=== PATIENT | male | born 1965 | race Caucasian/White ===

== ENCOUNTER 2020-09-24 16:22 | Emergency (ER) | payer BC, MEDICAID, SELFPAY ==
[2020-09-24 16:53] VITALS: BP 120/84; PULSE 80; RESP 19; TEMP 36.8; O2SAT 95
--- NOTE | 2020-09-24 17:04 | ED_ITS ---
HPI - COVID General: Chief Complaint: COVID symptoms Stated Complaint: COUGH SOB Time Seen by Provider: 09/24/20 17:03 Triage information: Has fever, cough or shortness of breath . No known COVID + exposure last 14 days History of Present Illness: HPI Narrative: Patient is a 54-year-old male who comes to the ED with cough and body aches. Symptoms started approximately 1 week ago. He describes his cough is dry and nonproductive and sometimes is coughing makes him gag and retch. He also has some mild shortness of breath when he is up and active doing things. Reports decreased appetite since symptoms started. Denies any shortness of breath while at rest. Denies fever, chills, chest pain, abdominal pain, nausea/vomiting, bladder or bowel symptoms. Patient used to be a tobacco smoker but says he quit approximately 10 years ago. COVID 19 common symptoms: positive non-productive cough, dyspnea (mild when active) and body aches; negative fever(s), chills, productive cough, fatigue, headache(s), throat pain, nasal congestion, nausea, vomiting or diarrhea COVID 19 other sytmptoms: negative chest pain COVID Results: SARS-CoV-2 Antigen (Rapid) Negative (Negative) 09/24/20 17:30 09/24/20 Review of Systems Const: Reports: body aches and change in appetite (decreased appetite); Denies: fever(s), chills or fatigue Eyes: Denies: change in vision or eye discomfort ENMT: Denies: throat pain, odynophagia, nasal discharge or nasal congestion Card: Denies: chest pain, palpitations, edema, swelling of feet/ankles, dyspnea on exertion or orthopnea Resp: Reports: dyspnea (mild when active) and non-productive cough; Denies: productive cough GI: Denies: abdominal pain, nausea, vomiting, diarrhea, constipation or hematochezia : Denies: flank pain, difficulty urinating, dysuria or hematuria Musc: Denies: neck pain, back pain or extremity swelling Skin/Breast: Denies: rash or new lesions Neuro: Denies: headache(s), numbness in extremities or weakness in extremities PFS ED PFSH: Social History Smoking and tobacco status: current every day smoker smokeless tobacco Smokeless tobacco user: chewing tobacco Physical Exam Const: COMMON NORMALS: no acute distress, patient oriented x3, healthy appearing and alert GENERAL APPEARANCE: cooperative and comfortable HENMT: COMMON NORMALS: normocephalic HEAD & SCALP: normocephalic MOUTH: Normal oral and palatal mucosa present THROAT: posterior oropharynx normal and uvula midline Eye: COMMON NORMALS: Equal, round and reactive pupils present PUPIL: Yes Equal, round and reactive pupils present Neck/C-Spine: COMMON NORMALS: supple GENERAL: Yes normal visual inspection Resp: COMMON NORMALS: normal respiratory effort, No retractions, No use of accessory muscles and clear to auscultation bilaterally EFFORT & INSPECTION: Yes able to speak in complete sentences, No tachypneic, No respiratory distress, No labored and Yes Actively coughing dry AUSCULTATION: clear to auscultation bilaterally Cardio: COMMON NORMALS: regular rate, regular rhythm, S1 normal heart sound present, S2 normal heart sound present, No gallops present (Cardio), No clicks present (Cardio), No murmurs present (Cardio) and Peripheral pulses 2+ throughout RATE: regular rate RHYTHM: regular rhythm HEART SOUNDS: S1 normal heart sound present and S2 normal heart sound present PERIPHERAL PULSES: Peripheral pulses 2+ throughout GI: COMMON NORMALS: Normal to inspection, nondistended, normoactive bowel sounds present, Soft to palpation, non-tender and no masses PALPATION: Yes Soft to palpation : COMMON NORMALS: Yes no CVA tenderness BLADDER/KIDNEY EXAM: Yes no CVA tenderness Back/Pelvis: COMMON NORMALS: no CVA tenderness Extremity: COMMON NORMALS: normal to inspection Neuro: COMMON NORMALS: patient oriented x3 and moves all extremities SENSORIUM/ORIENTATION: Yes alert Skin: GENERAL SKIN EXAM: dry skin Course Vital Signs: Vital signs: Vital Signs Temperature 98.1 F 09/24/20 19:34 Pulse Rate 85 09/24/20 20:34 Respiratory Rate 18 09/24/20 20:34 Blood Pressure 149/99 09/24/20 20:34 Pulse Oximetry 96 09/24/20 20:34 MDM - COVID MDM Narrative: Medical decision making narrative: Patient is a 54-year-old male comes to the ED with body aches and dry nonproductive cough. He also endorses some mild shortness of breath upon exertion. Denies any chest pain, fever, nausea/vomiting, abdominal pain, bladder or bowel symptoms. Symptoms have been going on for 7 days. Vitals are stable. Patient appears in no acute distress or pain. Lungs were clear to auscultation bilaterally. CBC was unremarkable. Patient had a creatinine of 1.4, but I have no known history of prior creatinine levels. The rest of CMP was unremarkable. Chest x-ray showed some viral pneumonia. Rapid Covid was negative. Patient was given IV fluids, azithromycin and Solu-Medrol here in the ED. Patient was stable for discharge home. He was diagnosed with viral syndrome, viral pneumonia and elevated serum creatinine level. He was sent home with a prescription for azithromycin and Medrol Dosepak and Tessalon Perles. He was told to follow-up with his PCP 5 to 7 days and to have his creatinine level rechecked at that time. Return to ED precautions given. Patient understood and agree with plan. Lab Data: Attestation: I reviewed the patient's lab results. Labs: Lab Results 09/24/20 09/24/20 09/24/20 Range/Units 17:30 18:13 18:13 WBC 6.4 (4.0-10.0) 10^3/ uL RBC 4.36 (4.1-5.3) 10^6/u L Hgb 13.3 (11.7-16.6) g/dL Hct 39.9 L (42.0-52.0) % MCV 91.5 (80-94) fl MCH 30.5 (28.0-34.0) pg MCHC 33.3 (30.0-36.0) g/dL RDW 13.2 (12.1-15.1) % Plt Count 214 (130-400) 10^3/c mm MPV 11.5 H (7.4-10.4) fL Neut % (Auto) 77.8 % Lymph % (Auto) 14.0 % Real % (Auto) 6.0 % Eos % (Auto) 1.3 % Baso % (Auto) 0.6 % Neut # (Auto) 4.95 (1.8-7.7) 10^3/u L Lymph # (Auto) 0.9 (0.8-4.8) 10^3/u L Real # (Auto) 0.4 (0.2-0.9) 10^3/u L Eos # (Auto) 0.1 (0.0-0.8) 10^3/u L Baso # (Auto) 0.0 (0.0-0.1) 10^3/u L Nucleated RBC % (a uto) 0 % Nucleated RBCs # 0.0 /100WBC Sodium 135 L (136-145) mmol/L Potassium 4.1 (3.5-5.1) mmol/L Chloride 99 (98-107) mmol/L Carbon Dioxide 21 L (22-29) mmol/L Anion Gap 19.1 H (5-19) BUN 24 H (6-20) mg/dL Creatinine 1.4 H (0.7-1.2) mg/dL GFR Calculation 52.4 L (90-130) mL/min Glucose 102 (65-115) mg/dL Calculated Osmolal ity 284 L (285-295) mOsm/k g Calcium 9.1 (8.5-10.5) mg/dL Total Bilirubin 0.7 (0.15-1.2) mg/dL AST 47 H (0-40) U/L ALT 33 (0-41) U/L Alkaline Phosphata se 82 (40-130) IU/L Total Protein 8.1 (6.6-8.7) g/dL Albumin 3.5 (3.5-5.2) g/dL Globulin 4.6 (1.3-4.6) g/dL Lipase 47 (13-60) U/L SARS-CoV-2 Ag (Rap id) Negative (Negative) Imaging Data: CXR: Attestation: I personally reviewed and interpreted this imaging study as follows: Radiologist's impression: [address] [address] XRay Report Signed Patient: Eros La Unit #: [id number] : 1965 Age/Sex: 54 / M ADM Date: 09/24/20 Loc: ER Room/Bed: Attending Dr: Ordering Provider/Ordering MD: Ambrocio Dorado Date of Service: 09/24/20 Procedure(s): XR chest 1V portable [id number] Accession Number(s): [id number] Report Number: [id number] PROCEDURE INFORMATION: Exam: XR Chest Exam date and time: 09/24/2020 5:03 PM Age: 54 years old Clinical indication: Cough; Additional info: Cough, body aches TECHNIQUE: Imaging protocol: XR of the chest. Views: 1 view. COMPARISON: No relevant prior studies available. FINDINGS: Lungs: Multifocal bilateral predominantly peripheral opacities which may be seen with viral pneumonia. Pleural spaces: Unremarkable. No pleural effusion. No pneumothorax. Heart/Mediastinum: No cardiomegaly. Bones/joints: No acute fracture. XR/XR chest 1V portable [id number] IMPRESSION: Multifocal bilateral predominantly peripheral opacities which may be seen with viral pneumonia. Dictated By: Chana Mustafa MD Signed By: Chana Mustafa MD Signed Date/Time: 0 09/24/201853 DD/ 51 COVID Results: SARS-CoV-2 Antigen (Rapid) Negative (Negative) 09/24/20 17:30 09/24/20 Discharge Plan Discharge Patient Disposition: Home Clinical Impression: Viral syndrome, Elevated serum creatinine, Pneumonia, viral Condition: Stable Prescriptions: New azithromycin 250 mg tablet 250 mg PO DAILY 4 Days Qty: 4 RF: 0 Medrol (Michael) 4 mg tablets,dose pack See Rx Instructions .ROUTE .COMPLEX Qty: 21 RF: 0 Tessalon Perles 100 mg capsule 100 mg PO TID PRN (Reason: cough) Qty: 20 RF: 0 No Action coenzyme Q10 PO RF: 0 cholecalciferol (vitamin D3) PO RF: 0 pantoprazole 40 mg tablet,delayed release (DR/EC) See Rx Instructions .ROUTE .COMPLEX Qty: 60 RF: 3 Discharge Orders: Discharge ED (Routine); Ordered 09/24/20 Ordered By: Ambrocio Dorado Referrals: Nolan Reyna DO [Primary Care Provider] - Discharge Diet: Regular Discharge Activity: Increase activity as tolerated Patient Instructions: Viral Pneumonia (ED), Viral Syndrome (ED) Activity Restrictions/Additional Instructions: Follow-up with medical provider as directed in 5 to 7 days days for reevaluation. Also have your creatinine level rechecked at your next doctor's appointment. Take medications as prescribed. Make sure you drink plenty of fluids and stay hydrated. Return to the ER or your medical provider if condition worsens. Please read and understand discharge instructions. Thank you for choosing [facility] for your healthcare needs today. Please realize this is an emergency room and that we are providing you with a medical screening exam and this may not be complete and all inclusive of all the testing and or work up that you may need to determine your ailment or severity of your illness. It is very important that you follow up as instructed or that you return to the Emergency Department should you have concerns or if your condition changes or worsens in any way. Coding Level of Care Code ED Signal Fitter for Tamra Fwjyotsna Exam Comprehensive
[2020-09-24 17:33] VITALS: BP 124/87; PULSE 83; RESP 18; TEMP 36.4; O2SAT 98
[2020-09-24 18:16] LABS: SARS Covid-2 Antigen Negative (Negative)
[2020-09-24 18:18] LABS: Basophils % 0.6 %; Eosinophils # 0.1 10^3/uL (0.0-0.8); Eosinophils % 1.3 %; Hematocrit 39.9 % (42.0-52.0); Hemoglobin 13.3 g/dL (11.7-16.6); Lymphocytes # 0.9 10^3/uL (0.8-4.8); Mean Corpuscular HGB Conc 33.3 g/dL (30.0-36.0); Mean Corpuscular Hemoglobin 30.5 pg (28.0-34.0); Mean Corpuscular Volume 91.5 fl (80-94); Mean Platelet Volume 11.5 fL (7.4-10.4); Monocytes # 0.4 10^3/uL (0.2-0.9); Neutrophils # 4.95 10^3/uL (1.8-7.7); Neutrophils % 77.8 %; Nucleated Red Blood Cells % 0 %; Platelet Count 214 10^3/cmm (130-400); Red Blood Count 4.36 10^6/uL (4.1-5.3); Red Cell Distribution Width 13.2 % (12.1-15.1); White Blood Count 6.4 10^3/uL (4.0-10.0)
[2020-09-24 18:35] LABS: Slide Review Slide Review Perform
[2020-09-24 18:50] LABS: Albumin Level 3.5 g/dL (3.5-5.2); Alkaline Phosphatase 82 IU/L (40-130); Chloride 99 mmol/L (98-107); Potassium 4.1 mmol/L (3.5-5.1)
[2020-09-24 19:04] LABS: Alanine Aminotransferase 33 U/L (0-41); Aspartate Amino Transferase 47 U/L (0-40); Blood Urea Nitrogen 24 mg/dL (6-20); Calcium 9.1 mg/dL (8.5-10.5); Carbon Dioxide 21 mmol/L (22-29); Globulin 4.6 g/dL (1.3-4.6); Glomerular Filtration Rate 52.4 mL/min (90-130); Glucose 102 mg/dL (65-115); Lipase 47 U/L (13-60); Total Bilirubin 0.7 mg/dL (0.15-1.2); Total Protein 8.1 g/dL (6.6-8.7)
[2020-09-24 19:05] LABS: Anion Gap 19.1 (5-19); Osmolality Calculated 284 mOsm/kg (285-295); Sodium 135 mmol/L (136-145)
[2020-09-24 19:34] VITALS: BP 124/87; PULSE 88; RESP 16; TEMP 36.7; O2SAT 97
[2020-09-24] MEDS: sodium chloride 0.9% 1,000 ML 999 ML IV (19:36)
[2020-09-24] MEDS: azithromycin 250 mg Tablet 500 MG PO (19:36)
[2020-09-24] MEDS: benzonatate 100 mg Capsule PO (20:19)
[2020-09-24 20:34] VITALS: BP 149/99; PULSE 85; RESP 18; O2SAT 96
== END 2020-09-24 20:35 | disposition home or self-care (01) ==
PROVIDERS: Emergency Provider Physician Assistant; PCP Family Medicine
DX: B34.9 Viral infection, unspecified (principal); J12.9 Viral pneumonia, unspecified; R79.89 Other specified abnormal findings of blood chemistry; F17.220 Nicotine dependence, chewing tobacco, uncomplicated; Z20.822 Contact with and (suspected) exposure to COVID-19
CPT/HCPCS: 71045; 80053; 83690; 85025; 87040; 87205; 87426; 96361; 96374; 99284; J2930; J7030; Q0144

== ENCOUNTER 2020-10-19 16:39 | Emergency (ER) | payer MEDICAID, SELFPAY ==
[2020-10-19 16:48] VITALS: BP 126/76; PULSE 102; RESP 16; TEMP 36.9; O2SAT 94; BMI 27.8
--- NOTE | 2020-10-19 17:02 | XRR_ITS ---
PROCEDURE INFORMATION: Exam: XR Chest Exam date and time: 10/19/2020 5:02 PM Age: 54 years old Clinical indication: Cough; Additional info: Dyspnea TECHNIQUE: Imaging protocol: XR of the chest. Views: 2 views. COMPARISON: CR (CHEST, ) 09/24/2020 5:35 PM FINDINGS: Lungs: Decreased patchy bilateral mixed interstitial and airspace opacity suggestive of resolving infiltrates compared to prior exam. Pleural spaces: Unremarkable. No pleural effusion. No pneumothorax. Heart/Mediastinum: Unremarkable. No cardiomegaly. Bones/joints: Unremarkable. XR/XR chest 2V* [id number] IMPRESSION: Decreased patchy bilateral mixed interstitial and airspace opacity suggestive of resolving infiltrates compared to prior exam.
--- NOTE | 2020-10-19 17:09 | ED_ITS ---
HPI - SOB/Dyspnea General: Chief Complaint: Shortness of Breath/Dyspnea Stated Complaint: SOB, pain in chest, stomach and side, cough Time Seen by Provider: 10/19/20 16:59 History of Present Illness: HPI Narrative: 54-year-old male patient comes in today for complaints of increased shortness of breath and cough. Patient back on September 23 was diagnosed with viral pneumonia. Patient had worsening symptoms over the week and then had to seek further service in [facility] and was diagnosed with a PE. Patient went to the primary care office today at the [facility] in [place] and was referred to the ER for concerns of fluid on his lungs. Patient reports sometimes he has pulse oxygenation readings down to 86% in the morning. Patient has as needed oxygen at home. Patient is on Eliquis and pantoprazole routinely. MD elicited complaint: shortness of breath and cough Review of Systems General: Reports: 10 or more systems reviewed and unremarkable except in HPI and below Resp: Reports: non-productive cough PFSH ED PFSH: Social History Smoking and tobacco status: current every day smoker smokeless tobacco Smokeless tobacco user: chewing tobacco Physical Exam Const: COMMON NORMALS: no acute distress and patient oriented x3 GENERAL APPEARANCE: cooperative HENMT: COMMON NORMALS: normocephalic, TM's normal bilaterally and Normal external nose present HEAD & SCALP: normal to inspection and normocephalic NOSE: Normal external nose present TYMPANIC MEMBRANE: TM's normal bilaterally MOUTH: Normal oral and palatal mucosa present THROAT: posterior oropharynx normal Eye: GENERAL EYE: appearance normal, both eyes and all related structures Neck/C-Spine: COMMON NORMALS: full ROM Lymph: LYMPHATIC: no lymphadenopathy noted Chest: COMMONS NORMALS: normal inspection of the chest Resp: COMMON NORMALS: normal respiratory effort EFFORT & INSPECTION: Yes able to speak in complete sentences AUSCULTATION: diminished lung sounds Cardio: COMMON NORMALS: regular rate and regular rhythm RATE: regular rate RHYTHM: regular rhythm GI: COMMON NORMALS: non-tender : COMMON NORMALS: Yes no CVA tenderness BLADDER/KIDNEY EXAM: Yes no CVA tenderness Back/Pelvis: COMMON NORMALS: no CVA tenderness and thoracic and lumbar spine normal to inspection Extremity: COMMON NORMALS: normal to inspection Neuro: COMMON NORMALS: patient oriented x3 and moves all extremities Psych: COMMON NORMALS: mental status grossly normal and cooperative Skin: COMMON NORMALS: no rashes or lesions noted GENERAL SKIN EXAM: no rashes or lesions noted Course Vital Signs: Vital signs: Vital Signs Temperature 98.4 F 10/19/20 16:48 Pulse Rate 82 10/19/20 18:32 Respiratory Rate 25 H 10/19/20 18:32 Blood Pressure 125/82 10/19/20 17:27 Pulse Oximetry 99 10/19/20 18:32 MDM - SOB/Dyspnea MDM Narrative: Medical decision making narrative: 54-year-old male patient comes in today for complaints of cough and congestion. Patient states they just do not feel like he is getting the congestion out of his chest like he thinks he should. Patient had probable Covid pneumonia last month and then suffered at after the pneumonia which required him to be hospitalized in [place]. Patient went to see his primary care today for reevaluation and they referred him to the ER due to his PE and congestion in his chest. On exam patient has some decreased breath sounds in the bases. Patient looks mildly unwell but not toxic. Patient was satting 94 to 99% on room air. Differential diagnosis includes pneumonia, deconditioning, COPD, pleural effusion. Chest x-ray noted improvement in the bilateral pneumonia that was seen last month although it does appear in the left lower lung ford there seems to be a persistent consolidation. I think the patient may be having a secondary bacterial pneumonia there and we will start him on some Levaquin due to his hospitalization. Patient will be continued for the next 5 days on Levaquin 750 mg. Patient will also be covered with some dexamethasone to help with inflammation in the lung ford. Patient will continue with albuterol inhaler. Encourage continuation of Eliquis and pantoprazole as prescribed. Patient should follow-up with internal medicine physician in 1 week for recheck. I did place a case management report for this further evaluation and treatment plan. Patient reported understanding. Lab Data: Labs: Lab Results 10/19/20 10/19/20 Range/Units 17:57 17:57 Sodium 136 (136-145) mmol/L Potassium 4.3 (3.5-5.1) mmol/L Chloride 100 (98-107) mmol/L Carbon Dioxide 26 (22-29) mmol/L Anion Gap 14.3 (5-19) BUN 12 (6-20) mg/dL Creatinine 1.1 (0.7-1.2) mg/dL GFR Calculation 69.2 L (90-130) mL/min Glucose 98 (65-115) mg/dL Calculated Osmolal ity 282 L (285-295) mOsm/k g Calcium 8.1 L (8.5-10.5) mg/dL Total Bilirubin 0.4 (0.15-1.2) mg/dL AST 19 (0-40) U/L ALT 46 H (0-41) U/L Alkaline Phosphata se 99 (40-130) IU/L Troponin T Gen 5 n g/L 18 H (0-15) ng/L NT-Pro-B Natriuret Pep 73 (0-125) pg/mL Total Protein 5.5 L (6.6-8.7) g/dL Albumin 2.8 L (3.5-5.2) g/dL Globulin 2.7 (1.3-4.6) g/dL Discharge Plan Discharge Patient Disposition: Home Clinical Impression: Pneumonia Qualifiers: Pneumonia type: due to unspecified organism Laterality: left Lung location: lower lobe of lung Qualified Code(s): J18.9 - Pneumonia, unspecified organism Condition: Stable Prescriptions: New levofloxacin 750 mg tablet 750 mg PO DAILY 4 Days RF: 0 dexamethasone 6 mg tablet 6 mg PO DAILY Qty: 4 RF: 0 No Action Tylenol Extra Strength 500 mg Tablet 1,000 mg PO Q4H PRN (Reason: Pain) RF: 0 Vitamin C 500 mg Tablet 1,000 mg PO QAM RF: 0 iron 325 mg (65 mg iron) Tablet 325 mg PO QAM RF: 0 ProAir HFA 90 mcg/actuation Hfa Aerosol Inhaler 2 puff INHALATION Q4H PRN (Reason: Shortness Of Breath) RF: 0 Eliquis 5 mg Tablet 5 mg PO BID RF: 0 Vitamin D3 1 cap PO QAM RF: 0 zinc 1 cap PO QAM RF: 0 pantoprazole 40 mg tablet,delayed release (DR/EC) 40 mg PO BID RF: 0 Discharge Orders: Discharge ED (Routine); Ordered 10/19/20 Ordered By: Amor Madrigal Referrals: Nolan Reyna DO [Primary Care Provider] - Discharge Diet: Usual diet Discharge Activity: Increase activity as tolerated Patient Instructions: Pneumonia (ED), Opioid Safety Activity Restrictions/Additional Instructions: Continue with routine care. Use albuterol inhaler 2 puffs every 4 hours as needed for shortness of breath or persistent coughing. Use it at least 4 times a day for the next 5 days. Use antibiotic and steroid as directed. Continue with oxygen use as needed. Follow-up with primary care in [address] a case management request for assistance with a referral to her automotive brake specialist in order to manage your pulmonary embolism and pneumonia follow-up. Return to the ER for worsening shortness of breath, elevated fever, or new concerns. Coding Level of Care Code ED Research Worker Encyclopedia for Tamra Fwjyotsna Exam Comprehensive
--- NOTE | 2020-10-19 17:20 | ECG_ITS ---
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 Measurements Intervals [place] Rate: 101 P: 56 IA: 116 QRS: 41 QRSD: 89 T: 38 QT: 328 QTc: 427 Interpretive Statements SINUS TACHYCARDIA WITH SHORT IA INTERVAL No previous ECG available for comparison Electronically Signed On 10-19-2020 20:08:09 CDT by Girish Phillip M.D. [id number]
[2020-10-19 17:27] VITALS: BP 125/82; PULSE 99; RESP 24; O2SAT 97
[2020-10-19] MEDS: levoFLOXacin 750 mg Tablet PO (18:29)
[2020-10-19] MEDS: dexamethasone 10 mg/mL INJ IVP (18:30)
[2020-10-19 18:32] VITALS: PULSE 82; RESP 25; O2SAT 99
[2020-10-19 18:32] LABS: Troponin T (5th) Once 18 ng/L (0-15)
[2020-10-19 18:46] LABS: Alanine Aminotransferase 46 U/L (0-41); Albumin Level 2.8 g/dL (3.5-5.2); Alkaline Phosphatase 99 IU/L (40-130); Anion Gap 14.3 (5-19); Aspartate Amino Transferase 19 U/L (0-40); Blood Urea Nitrogen 12 mg/dL (6-20); Calcium 8.1 mg/dL (8.5-10.5); Carbon Dioxide 26 mmol/L (22-29); Chloride 100 mmol/L (98-107); Globulin 2.7 g/dL (1.3-4.6); Glomerular Filtration Rate 69.2 mL/min (90-130); Glucose 98 mg/dL (65-115); NT Pro B Type Natriuretic Pept 73 pg/mL (0-125); Osmolality Calculated 282 mOsm/kg (285-295); Potassium 4.3 mmol/L (3.5-5.1); Sodium 136 mmol/L (136-145); Total Bilirubin 0.4 mg/dL (0.15-1.2); Total Protein 5.5 g/dL (6.6-8.7)
[2020-10-19 19:11] VITALS: PULSE 104; RESP 17; O2SAT 98
--- NOTE | 2020-10-23 10:51 | DCPLANNER ---
custodial services manager had message to schedule a follow up appointment for patient with internal medicine for primary care. custodial services manager called the internal medicine clinic, spoke with Jennifer, gave clinic patients information. A follow up appointment was scheduled for Saturday, October 24, 2020 at 1:00 with CUFF FOLDER, Lashell Segundo. Clinic will call patient with appointment information.
--- NOTE | 2020-10-27 13:52 | DCPLANNER ---
Patient had a follow up appointment scheduled with Internal Medicine - appointment was cancelled.
== END 2020-10-19 19:12 | disposition home or self-care (01) ==
PROVIDERS: Emergency Provider Nurse Practitioner Family; PCP Family Medicine
DX: J18.9 Pneumonia, unspecified organism (principal); Z79.01 Long term (current) use of anticoagulants; F17.220 Nicotine dependence, chewing tobacco, uncomplicated
CPT/HCPCS: 71046; 80053; 83880; 84484; 93005; 96374; 99284; J1100

== ENCOUNTER → 2021-05-29 15:06 | Outpatient (BNVA) | payer MEDICAID, SELFPAY | PROVIDERS: PCP Nurse Practitioner; Visit Provider Internal Medicine Critical Care Medicine | DX: J86.9 Pyothorax without fistula (principal); Z87.891 Personal history of nicotine dependence; Z86.16 Personal history of COVID-19; R06.02 Shortness of breath | CPT/HCPCS: 99204 ==

== ENCOUNTER 2021-07-04 08:19 | Outpatient (CLI) | payer MEDICAID, SELFPAY ==
--- NOTE | 2021-07-04 08:30 | CT_ITS ---
WS: [id number] CT CHEST WITHOUT INTRAVENOUS CONTRAST HISTORY: Shortness of breath TECHNIQUE: Contiguous 5 mm axial imaging performed on the thorax. Coronal and sagittal reformats are submitted. All CT scans at [facility] use at least one of these dose optimization techniques: automated exposure control; mA and/or kV adjustment per patient size (includes targeted exams where dose is matched to clinical indication); or iterative reconstruction. CONTRAST: None DLP: 667.48 mGy.cm COMPARISON: Chest radiograph 10/19/2020 Lungs and central airway: Mild pulmonary hyperinflation with peripheral opacifications. Some of these opacifications are groundglass with mild tree-in-bud and slightly more consolidated opacifications. Well-rounded 10 mm nodule at the RIGHT lung base which could be a focal nodule developing or rounded atelectasis. Pleura: Normal. No pleural effusion. Heart and pericardium: Normal size heart with no pericardial effusion. Mediastinum and zuly: No mediastinum or hilar adenopathy. Vessels: Normal size aorta and pulmonary artery. Chest wall and lower neck: No soft tissue masses. Upper abdomen: Small hiatal hernia. No visualized adrenal mass. Osseous structures: Mild increase in thoracic kyphosis. CT/CT chest wo con [id number] IMPRESSION: 1. Bilateral multi lobar mild groundglass, tree-in-bud and slightly more conso lidated opacifications. Most consistent with mild pneumonitis with areas of ate lectasis. There is an additional 10 mm nodule at the RIGHT lung base which coul d be rounded atelectasis. Consider follow-up chest CT in 6 months. 2. As compared to the most recent chest radiograph of 10/19/2020 the lungs appea r better aerated. 3. No cardiomegaly. 4. Small hiatal hernia.
--- NOTE | 2021-07-04 12:54 | PFTS_ITS ---
Date of Study:07/04/21 Date of Dictation: MECHANICS: Forced vital capacity (FVC) is reduced. Forced expiratory volume in one second (FEV1) is reduced. FEV1/FVC is normal. FLOW VOLUME LOOP: Mild scooping. LUNG VOLUMES: Total lung capacity (TLC) is reduced. Residual volume (RV) is reduced. DIFFUSING CAPACITY FOR CARBON MONOXIDE: Mildly reduced. INTERPRETATION: The postbronchodilator spirometry is consistent with mild restriction. There is some postbronchodilator response. Lung volumes are consistent with mild restriction. Gas exchange (DLCO) is mildly reduced. MTDD
== END 2021-07-04 08:20 | disposition home or self-care (01) ==
LOC: RAD 08:20
PROVIDERS: PCP Nurse Practitioner; Visit Provider Internal Medicine Critical Care Medicine
DX: R91.8 Other nonspecific abnormal finding of lung field (principal); K44.9 Diaphragmatic hernia without obstruction or gangrene
CPT/HCPCS: 71250; 94060; 94726; 94729; J7611

== ENCOUNTER → 2021-07-19 12:11 | Outpatient (BNVA) | payer MEDICAID, SELFPAY | PROVIDERS: PCP Nurse Practitioner; Visit Provider Internal Medicine Critical Care Medicine | DX: J86.9 Pyothorax without fistula (principal); R06.02 Shortness of breath; R91.1 Solitary pulmonary nodule; Z87.891 Personal history of nicotine dependence; Z86.16 Personal history of COVID-19 | CPT/HCPCS: 99214 ==

== ENCOUNTER → 2021-09-14 10:08 | Outpatient (BNVA) | payer MEDICAID, SELFPAY | PROVIDERS: PCP Nurse Practitioner; Visit Provider Nurse Practitioner Family | DX: M25.511 Pain in right shoulder (principal); S49.91XA Unspecified injury of right shoulder and upper arm, initial encounter; X58.XXXA Exposure to other specified factors, initial encounter | CPT/HCPCS: 20610; 73030; 99214; J3301 ==

== ENCOUNTER → 2021-09-26 12:34 | Outpatient (BNVA) | payer MEDICAID, SELFPAY | PROVIDERS: PCP Nurse Practitioner; Visit Provider Podiatrist Foot & Ankle Surgery | DX: L60.0 Ingrowing nail (principal) | CPT/HCPCS: 11730 ==

== ENCOUNTER → 2021-10-10 14:32 | Outpatient (BNVA) | payer MEDICAID, SELFPAY | PROVIDERS: PCP Nurse Practitioner; Visit Provider Podiatrist Foot & Ankle Surgery | DX: L60.0 Ingrowing nail (principal) | CPT/HCPCS: 99213 ==

== ENCOUNTER 2021-12-12 13:44 | Outpatient (CLI) | payer MEDICAID, SELFPAY ==
--- NOTE | 2021-12-12 | USCV_ITS ---
YaminiEros neves Age: 56 Gender: M : 1965 Exam Date: 12/12/2021 14:32 Ordering Phys: Jameson Chisholm Technologist: SOCRATES Exam Location: [facility] – [place] Indication: LEG EDEMA HISTORY: Bilateral Edema. On blood thinners (baby aspirin) for blot clots in bilateral legs PROCEDURES: Venous duplex imaging was performed in bilateral lower extremities. The following venous structures were evaluated: common femoral vein, profunda vein, proximal portion of the greater saphenous vein, superficial femoral vein, and the popliteal vein. In addition, the posterior tibial and peroneal trunk were evaluated. Serial compression, augmentation maneuvers, and spectral Doppler flow evaluation were performed. FINDINGS: Chronic DVT seen on Rt prox femoral artery to popliteal artery. CONCLUSIONS Chronic appearing DVT right proximal femoral vein extending to popliteal vein with poor flow No evidence of left lower extremity DVT. Guy Bang MD (Electronically Signed) Final Date: 12 December 2021 16:17 S
== END 2021-12-12 13:45 | disposition home or self-care (01) ==
PROVIDERS: PCP Nurse Practitioner; Visit Provider Nurse Practitioner
DX: R06.9 Unspecified abnormalities of breathing (principal); I82.411 Acute embolism and thrombosis of right femoral vein; I82.431 Acute embolism and thrombosis of right popliteal vein
CPT/HCPCS: 93970

== ENCOUNTER 2022-01-02 12:55 | Emergency (ER) | payer MEDICAID, SELFPAY ==
--- NOTE | 2022-01-02 13:33 | USCV_ITS ---
Eros La Age: 56 Gender: M : 1965 Exam Date: 01/02/2022 13:48 Ordering Phys: Dick Hernández DO Technologist: Darryl Rousseau [place] [facility] [place]: HX OF RT LEG DVT PROCEDURES: Venous duplex imaging was performed in only the right lower extremity. The following venous structures were evaluated: common femoral vein, profunda vein, proximal portion of the greater saphenous vein, superficial femoral vein, and the popliteal vein. In addition, the posterior tibial and peroneal trunk were evaluated. FINDINGS: RT LEG DVT FROM FV, POPLETEAL AND PERNINEAL CONCLUSIONS Right Lower extremity DVT femoral vein, popliteal and peroneal veins. Persistent thrombus is similiar in appearance to 12/12/21 Dr Little notified at time of exam by [employer] Guy Bang MD (Electronically Signed) Final Date: 02 January 2022 16:34 S
[2022-01-02 13:34] VITALS: BP 120/83; PULSE 61; TEMP 36.8; O2SAT 96
--- NOTE | 2022-01-02 14:48 | W.ED.GENADLT ---
Documented by User: FRANC Serna 01/02/22 16:06 HPI - General Adult General: Chief complaint: General Medical Stated complaint: Sent from for bloodclot in right leg Time Seen by Provider: 01/02/22 14:47 History of Present Illness: Patient is a 56-year-old male comes to the ED with with right leg DVT. Patient was sent here by primary care doctor because an ultrasound done on his right lower leg approximately 3 weeks ago showed a DVT. Patient denies any symptoms. Denies any chest pain, shortness of breath or hemoptysis. Associated symptoms: Deny chest pain, dyspnea, headache(s), nausea, rash, palpitations or vomiting Review of Systems Const: Denies: fever(s), chills or fatigue Eyes: Denies: change in vision or eye discomfort ENMT: Denies: throat pain, odynophagia, nasal discharge or nasal congestion Card: Denies: chest pain, palpitations, edema, swelling of feet/ankles, dyspnea on exertion or orthopnea Resp: Denies: dyspnea, productive cough or non-productive cough GI: Denies: abdominal pain, nausea, vomiting, diarrhea, constipation or hematochezia : Denies: flank pain, difficulty urinating, dysuria or hematuria Musc: Denies: neck pain, back pain or extremity swelling Skin/Breast: Denies: rash or new lesions Neuro: Denies: headache(s), numbness in extremities or weakness in extremities PFS ED PFSH: Medical History Pneumonia Pyopneumothorax Surgical History S/P appendectomy Social History Smoking and tobacco status: former smoker Quit status (tobacco): has quit using tobacco Year quit tobacco: 2007 Former quit date comment: 2 ppd X 34 years, started at age 7 Physical Exam Const: COMMON NORMALS: no acute distress, patient oriented x3 and alert GENERAL APPEARANCE: cooperative and comfortable HENMT: COMMON NORMALS: normocephalic HEAD & SCALP: normocephalic MOUTH: Normal oral and palatal mucosa present THROAT: posterior oropharynx normal and uvula midline Neck/C-Spine: COMMON NORMALS: supple GENERAL: Yes normal visual inspection Resp: COMMON NORMALS: normal respiratory effort, No retractions, No use of accessory muscles and clear to auscultation bilaterally AUSCULTATION: clear to auscultation bilaterally Cardio: COMMON NORMALS: regular rate, regular rhythm, S1 normal heart sound present, S2 normal heart sound present, No gallops present (Cardio), No clicks present (Cardio), No murmurs present (Cardio) and Peripheral pulses 2+ throughout RATE: regular rate RHYTHM: regular rhythm HEART SOUNDS: S1 normal heart sound present and S2 normal heart sound present PERIPHERAL PULSES: Peripheral pulses 2+ throughout GI: COMMON NORMALS: Normal to inspection, nondistended, normoactive bowel sounds present, Soft to palpation, non-tender and no masses PALPATION: Yes Soft to palpation : COMMON NORMALS: Yes no CVA tenderness BLADDER/KIDNEY EXAM: Yes no CVA tenderness Back/Pelvis: COMMON NORMALS: no CVA tenderness Extremity: COMMON NORMALS: normal to inspection Neuro: COMMON NORMALS: patient oriented x3 SENSORIUM/ORIENTATION: Yes alert GAIT: Yes Normal gait present Skin: GENERAL SKIN EXAM: dry skin Course Vital Signs: Vital signs: Vital Signs Temperature 98.2 F 01/02/22 13:34 Pulse Rate 67 01/02/22 15:34 Respiratory Rate 14 01/02/22 15:34 Blood Pressure 123/85 01/02/22 15:34 Pulse Oximetry 98 01/02/22 15:34 Oxygen Delivery Me thod 01/02/22 15:34 MDM - General Adult Medical Decision Making Patient is a 56-year-old male who was sent here to the ED by his doctor due to a DVT of his right leg. He currently has no symptoms. Denies any chest pain, shortness of breath or hemoptysis. Patient had about patient ultrasound down of his lower extremities bilaterally back on December and therefore just came back and showed he had a DVT in right leg femoral vein. He was given a dose of Lovenox here in the ED and discharged home with a prescription for Eliquis. He was told to follow-up with his PCP within the next week for reevaluation. Return ED precautions given. Patient understood and agreed with plan. Discharge Plan Discharge Patient Disposition: Home Clinical Impression: DVT (deep venous thrombosis) Qualifiers: DVT location: lower extremity Affected thrombotic vein of extremity: femoral Chronicity: chronic Laterality: right Qualified Code(s): I82.511 - Chronic embolism and thrombosis of right femoral vein Condition: Stable Prescriptions: New apixaban 5 mg tablet 5 mg PO BID Qty: 60 0RF Rx Instructions: Take 2 tabs twice daily for the first 7 days. After day 7 take 1 tablet twice daily. No Action furosemide [Lasix] 40 mg tablet 40 mg PO DAILY atorvastatin 20 mg tablet 20 mg PO DAILY fluoxetine [Prozac] 10 mg capsule 10 mg PO DAILY potassium chloride 10 mEq capsule, extended release 10 meq PO DAILY aspirin 325 mg tablet 325 mg PO DAILY Bevespi Aerosphere 9-4.8 mcg HFA aerosol inhaler 2 puff inhalation BID Qty: 10.7 5RF ProAir HFA 90 mcg/actuation Hfa Aerosol Inhaler 2 puff INHALATION Q4H PRN (Reason: Shortness Of Breath) pantoprazole 40 mg tablet,delayed release (DR/EC) 40 mg PO BID Discharge Orders: Discharge ED (Routine); Ordered 01/02/22 Ordered By: Ambrocio Dorado Referrals: Jameson Chisholm FNP [Primary Care Provider] - Discharge Diet: Regular Discharge Activity: Resume usual activity Patient Instructions: Apixaban (By mouth), Deep Vein Thrombosis (DC) Activity Restrictions/Additional Instructions: Follow-up with medical provider as directed in the next couple weeks for reevaluation. Start taking Eliquis 2 tabs twice daily for the first 7 days and then after day 7 take 1 tab twice daily. Take medications as prescribed. Return to the ER or your medical provider if condition worsens. Please read and understand discharge instructions. Thank you for choosing [facility] for your healthcare needs today. Please realize this is an emergency room and that we are providing you with a medical screening exam and this may not be complete and all inclusive of all the testing and or work up that you may need to determine your ailment or severity of your illness. It is very important that you follow up as instructed or that you return to the Emergency Department should you have concerns or if your condition changes or worsens in any way. 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 [employer] Exam Comprehensive Documented by User: Dick Hernández DO 01/04/22 13:55 HPI - General Adult General: Chief complaint: General Medical Stated complaint: Sent from for bloodclot in right leg Time Seen by Provider: 01/02/22 14:47 [facility] [place] ED PFSH: Medical History Pneumonia Pyopneumothorax Surgical History S/P appendectomy Social History Smoking and tobacco status: former smoker Quit status (tobacco): has quit using tobacco Year quit tobacco: 2007 Former quit date comment: 2 ppd X 34 years, started at age 7 Course Vital Signs: Vital signs: Vital Signs Temperature 98.2 F 01/02/22 13:34 Pulse Rate 67 01/02/22 15:34 Respiratory Rate 14 01/02/22 15:34 Blood Pressure 123/85 01/02/22 15:34 Pulse Oximetry 98 01/02/22 15:34 Oxygen Delivery Me thod 01/02/22 15:34 MDM - General Adult Medical Decision Making Patient is a 56-year-old male who was sent here to the ED by his doctor due to a DVT of his right leg. He currently has no symptoms. Denies any chest pain, shortness of breath or hemoptysis. Patient had about patient ultrasound down of his lower extremities bilaterally back on December and therefore just came back and showed he had a DVT in right leg femoral vein. He was given a dose of Lovenox here in the ED and discharged home with a prescription for Eliquis. He was told to follow-up with his PCP within the next week for reevaluation. Return ED precautions given. Patient understood and agreed with plan. Chart reviewed and patient discussed with midlevel. Agree with assessment and plan. Discharge Plan Discharge Patient Disposition: Home Clinical Impression: DVT (deep venous thrombosis) Qualifiers: DVT location: lower extremity Affected thrombotic vein of extremity: femoral Chronicity: chronic Laterality: right Qualified Code(s): I82.511 - Chronic embolism and thrombosis of right femoral vein Condition: Stable Prescriptions: New apixaban 5 mg tablet 5 mg PO BID Qty: 60 0RF Rx Instructions: Take 2 tabs twice daily for the first 7 days. After day 7 take 1 tablet twice daily. No Action furosemide [Lasix] 40 mg tablet 40 mg PO DAILY atorvastatin 20 mg tablet 20 mg PO DAILY fluoxetine [Prozac] 10 mg capsule 10 mg PO DAILY potassium chloride 10 mEq capsule, extended release 10 meq PO DAILY aspirin 325 mg tablet 325 mg PO DAILY Bevespi Aerosphere 9-4.8 mcg HFA aerosol inhaler 2 puff inhalation BID Qty: 10.7 5RF ProAir HFA 90 mcg/actuation Hfa Aerosol Inhaler 2 puff INHALATION Q4H PRN (Reason: Shortness Of Breath) pantoprazole 40 mg tablet,delayed release (DR/EC) 40 mg PO BID Discharge Orders: Discharge ED (Routine); Ordered 01/02/22 Ordered By: Ambrocio Dorado Referrals: Jameson Chisholm, [facility] [Primary Care Provider] - Discharge Diet: Regular Discharge Activity: Resume usual activity Patient Instructions: Apixaban (By mouth), Deep Vein Thrombosis (DC) Activity Restrictions/Additional Instructions: Follow-up with medical provider as directed in the next couple weeks for reevaluation. Start taking Eliquis 2 tabs twice daily for the first 7 days and then after day 7 take 1 tab twice daily. Take medications as prescribed. Return to the ER or your medical provider if condition worsens. Please read and understand discharge instructions. Thank you for choosing [facility] for your healthcare needs today. Please realize this is an emergency room and that we are providing you with a medical screening exam and this may not be complete and all inclusive of all the testing and or work up that you may need to determine your ailment or severity of your illness. It is very important that you follow up as instructed or that you return to the Emergency Department should you have concerns or if your condition changes or worsens in any way. 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 Tamra Bazan Exam Comprehensive
[2022-01-02] MEDS: enoxaparin 150 mg/mL Syringe SUBCUT (15:18)
[2022-01-02 15:34] VITALS: BP 123/85; PULSE 67; RESP 14; O2SAT 98
== END 2022-01-02 15:43 | disposition home or self-care (01) ==
PROVIDERS: Emergency Provider Physician Assistant; PCP Nurse Practitioner
DX: I82.511 Chronic embolism and thrombosis of right femoral vein (principal); Z79.82 Long term (current) use of aspirin; Z87.891 Personal history of nicotine dependence
CPT/HCPCS: 93971; 96372; 99284; J1650

== ENCOUNTER 2022-01-09 08:58 | Outpatient (CLI) | payer MEDICAID, SELFPAY ==
--- NOTE | 2022-01-09 09:30 | CT_ITS ---
WS: [id number] CT CHEST TECHNIQUE: Noncontrast CT of the chest with coronal and sagittal reformatted images. CLINICAL INFORMATION: f/u post COVID changes COMPARISON: CT July 04, 2021 DLP: 758.[address] scans at [facility] use at least one of these dose optimization techniques: automated e xposure control; mA and/or kV adjustment per patient size (includes targeted exams where dose is matc hed to clinical indication); or iterative reconstruction. FINDINGS: Stable 10 mm nodule RIGHT lower lobe. Moderate chronic emphysematous changes. Slight hazy atelectasis and subsegmental atelectasis in the lung bases. No mediastinal or hilar lymphadenopathy. No normal caliber thoracic aorta. No axillary lymphadenopath y. Adrenal glands are normal. Mild thoracic curve. Mild thoracic kyphosis. Hypertrophic changes mid and lower thoracic spine. CT/CT chest wo con [id number] IMPRESSION: 1. Stable 10 mm nodule RIGHT lower lobe. Recommend 12 month follow-up. 2. No other significant interval changes. 3. Moderate chronic emphysematous changes. Scattered subpleural groundglass op acities with subsegmental atelectasis in the lung bases is not significantly ch anged compared to previous. 4. Small esophageal hiatal hernia.
== END 2022-01-09 08:59 | disposition home or self-care (01) ==
PROVIDERS: PCP Nurse Practitioner; Visit Provider Internal Medicine Pulmonary Disease
DX: U09.9 Post COVID-19 condition, unspecified (principal); R06.09 Other forms of dyspnea; K44.9 Diaphragmatic hernia without obstruction or gangrene
CPT/HCPCS: 71250

== ENCOUNTER 2022-03-21 10:35 | Outpatient (CLI) | payer OTHER, SELFPAY ==
--- NOTE | 2022-03-21 12:27 | XR_ITS ---
WS: [id number] XR shoulder RT min 2V* [id number] REASON FOR EXAM: R SHOULDER PAIN FINDINGS: No fracture or focal bone lesion. Mild narrowing of the acromioclavicular joint with minimal subchondral sclerosis. The glenohumeral joint is intact and well maintained. No significant rotator cuff tendon arthropathy. No soft tissue abnormality. XR/XR shoulder RT min 2V* [id number] IMPRESSION: Minimal osteoarthritis acromioclavicular joint examination otherwise unremarkab le.
== END 2022-03-21 10:36 | disposition home or self-care (01) ==
LOC: RAD 10:47
PROVIDERS: PCP Nurse Practitioner; Visit Provider Dermatology
DX: Z02.71 Encounter for disability determination (principal)
CPT/HCPCS: 73030

== ENCOUNTER 2022-06-14 11:35 | Outpatient (CLI) | payer MEDICAID, SELFPAY ==
--- NOTE | 2022-06-14 11:45 | USCV_ITS ---
Eros La Age: 56 Gender: M : 1965 Exam Date: 06/14/2022 11:47 Ordering Phys: Donta Haider MD ([email or web address]) Technologist: [place] [facility] [place]: sob BP: 128 / 72 HR: 66 Rhythm: Sinus Technical Quality: Adequate MEASUREMENTS (Male / Female) Normal Values 2D ECHO LV Diastolic Diameter PLAX 3.4 cm 4.2 - 5.9 / 3.9 - 5.3 cm LV Systolic Diameter PLAX 2.7 cm IVS Diastolic Thickness 1.5 cm 0.6 - 1.0 / 0.6 - 0.9 cm IVS Systolic Thickness 1.6 cm LVPW Diastolic Thickness 1.0 cm 0.6 - 1.0 / 0.6 - 0.9 cm LVPW Systolic Thickness 1.3 cm LVOT Diameter 2.0 cm LV Ejection Fraction 2D Teich 36.2 % LV Ejection Fraction MOD 2C 56.3 % LV Ejection Fraction 2C AL 58.2 % LA Diameter 4.1 cm M-MODE Aortic Annulus Diameter 3.0 cm LA Ao Ratio MM 1.6 MV E Point Septal Separation 1.1 cm DOPPLER AV Peak Velocity 130.0 cm/s LVOT Peak Velocity 87.0 cm/s AV Area Cont Eq vti 1.9 cm squared AV Area Cont Eq pk 2.2 cm squared MV Area PHT 5.0 cm squared Mitral E to A Ratio 1.3 MV E' Velocity 35.0 cm/s Mitral E to MV E' Ratio 4.1 Mitral E to LV E' Lateral Ratio 4.0 Mitral E to LV E' Septal Ratio 4.3 TR Peak Velocity 190.7 cm/s TR Peak Gradient 14.5 mmHg TV Peak E Velocity 124.0 cm/s Right Atrial Pressure 3.0 mmHg Pulmonary Artery Systolic Pressu 17.5 mmHg FINDINGS Left Ventricle Normal left ventricular size and systolic function, EF 58 %. No regional wall motion abnormalities. Right Ventricle The right ventricle is normal in size and function. Right Atrium The right atrium is normal in size. Left Atrium The left atrium is normal in size. Mitral Valve Trace mitral valve regurgitation. Aortic Valve Thickened aortic valve. Tricuspid Valve Trace tricuspid valve regurgitation. Pulmonic Valve No gross abnormalities noted Pericardium No pericardial effusion. Aorta Normal ascending aorta dimension. IVC The inferior vena cava appears normal. CONCLUSIONS Normal left ventricular size and systolic function, EF 58 %. No regional wall motion abnormalities. Trace mitral valve regurgitation. Thickened aortic valve. Trace tricuspid valve regurgitation. There is no pericardial effusion. No similar previous studies are available for comparison Dr Donta Haider MD [facility] (Electronically Signed) Final Date: 18 Jun 2022 00:36 S
--- NOTE | 2022-06-14 12:11 | SUR.PREOP ---
PRE STRESS NOTE Patient arrived for DSE today. I read the H&P from Dr North, which states patient is to have a lexiscan sestamibi. Called his office for clarification since the stress ordered is for A dobutamine stress echo. Unfortunately Dr North is OUT OF OFFICE today and the nurse was unable to reach for clarification. the note and order are contradictory for the type of stress to be done, so the patient was cancelled for now pending clarification. Patient arrived and had 2d echocardiogram completed. I informed the patient of the situation and he also said he believed the test to be done was a chemical stress test. He was okay with postponing until a clarification could be obtained. Scheduling aware. Dr North nurse aware and is to clarify with dr north on Friday and get rescheduled.
== END 2022-06-14 11:36 | disposition home or self-care (01) ==
LOC: RAD 11:36 → CDL 11:38
PROVIDERS: PCP Nurse Practitioner; Visit Provider Internal Medicine Cardiovascular Disease
DX: R06.09 Other forms of dyspnea (principal); I35.8 Other nonrheumatic aortic valve disorders
CPT/HCPCS: 73560; 73565; 93306

== ENCOUNTER 2022-06-21 13:45 | Outpatient (CLI) | payer MEDICAID, SELFPAY ==
--- NOTE | 2022-06-21 14:30 | MR_ITS ---
WS: [id number] MRI RIGHT KNEE HISTORY: Twisting injury, pain. COMPARISON: Knee radiograph 05/21/2022 Anterior cruciate ligament: Thinning of the distal ACL fibers with a small amount of increased T2 sig nal. Partial tear suspected involving the posterior fibers distally. Posterior cruciate ligament: Intact. Medial collateral ligament: Intact. Posterior lateral corner structures: Intact. Medial menisci: Abnormal signal in the posterior horn extends towards the free edge. Abnormal signal extends along the inferior articular surface and suspicious for tear. Lateral meniscus: Intact. Normal signal, size and shape. Extensor mechanism: Distal quadriceps tendon and patellar tendons are intact. Fluid and soft tissue: Very small joint effusion. No Ornelas's cyst. Osseous and articular structures: Patellofemoral compartment: Normal. Medial compartment: Mild medial compartment with thinning and fissuring of the cartilage. No full-thi ckness cartilage defect. Lateral compartment: Normal. MR/MR knee RT wo con* [id number] IMPRESSION: 1. Thinning of the distal ACL. Suspicious for partial tear involving the poste rior fibers. Majority of the ligament is still intact. 2. Horizontal tear posterior horn medial meniscus extends to the free edge. 3. Mild medial compartment joint space narrowing with thinning and fissuring o f the cartilage.
== END 2022-06-21 13:46 | disposition home or self-care (01) ==
LOC: RAD 13:48
PROVIDERS: PCP Nurse Practitioner; Visit Provider Orthopaedic Surgery
DX: M17.11 Unilateral primary osteoarthritis, right knee (principal); S83.241A Other tear of medial meniscus, current injury, right knee, initial encounter; X58.XXXA Exposure to other specified factors, initial encounter
CPT/HCPCS: 73721

== ENCOUNTER 2022-07-11 06:59 | Day surgery (SDC) | payer OTHER, SELFPAY ==
[2022-07-10 09:08] VITALS: BMI 30.4
[2022-07-11 07:42] VITALS: BP 145/81; PULSE 59; RESP 18; TEMP 36.3; O2SAT 97
[2022-07-11] MEDS: CELEcoxib 200 mg Capsule 400 MG PO (07:50)
[2022-07-11] MEDS: acetaminophen 500 mg Tablet 1000 MG PO (07:50)
--- NOTE | 2022-07-11 08:06 | P.MISC_ITS ---
Miscellaneous Note Purpose of Documentation: Need to re-schedule case Note: Patient is due to get stress test july 19 for episodes of chest pain. Will re- schedule elective surgery until after results are obtained. Patient and surgeon aware and in agreement.
--- NOTE | 2022-07-11 13:22 | ANE.PACU2 ---
Inpatient post-anesthesia follow up: Airway intact: Yes Vital signs: Temperature 97.3 F Pulse Rate 59 Respiratory Rate 18 Blood Pressure 145/81 Pulse Oximetry 97 Oxygen Delivery Me thod Room Air Oxygen Flow Rate Fraction of Inspir ed Oxygen Hydration adequate: Yes Nausea and vomiting: No Pain level: 1 Mental status: Baseline
== END 2022-07-11 08:15 | disposition home or self-care (01) ==
LOC: OR 07:00
PROVIDERS: PCP Nurse Practitioner; Visit Provider Orthopaedic Surgery
PROC: (CPT 29870; principal; 2022-07-11 09:10)
DX: R07.9 Chest pain, unspecified; Z53.09 Procedure and treatment not carried out because of other contraindication

== ENCOUNTER 2022-07-19 09:39 | Outpatient (CLI) | payer MEDICAID, SELFPAY ==
--- NOTE | 2022-07-19 | ECG_ITS ---
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 Interpretive Statements NAME OF STUDY: LEXISCAN SESTAMIBI STRESS TEST INDICATION: [Chest Pain, ] Procedure: At the baseline, the blood pressure was 122/80 mmHg with a heart rate of 60 bpm. The electrocardiogram showed normal sinus rhythm, normal axis with normal ST and T's. The Lexiscan was infused over a period of 20 seconds. A total of 0.4 mg of Lexiscan was infused. The stress phase was continued for a total of 5 minutes. Heart rate was at the end of stress phase was 98 bpm and a blood pressure of 124/81 mmHg. The EKG at the peak infusion revealed normal sinus rhythm with no significant ST-T wave changes. Sestamibi was injected 20 seconds after the Lexiscan infusion. Blood pressure at the end of recovery phase was 127/80 mmHg with a heart rate of 91 bpm. Conclusion: 1. Normal EKG response to Lexiscan infusion 2. No Lexiscan induced chest pain or cardiac arrhythmia. 3. Normal blood pressure and heart rate response. 4. Sestamibi/sestamibi perfusion scan pending; see separate report. Electronically Signed On 08-02-2022 14:07:28 CDT by Girish Phillip M.D. [id number]
[2022-07-19 10:19] VITALS: BMI 30.4
--- NOTE | 2022-07-19 10:22 | NMCV_ITS ---
NM martina perf SPECT r/s* [id number] Bessie Eros Age: 56 Gender: M : 1965 Exam Date: 07/19/2022 11:17 Ordering Phys: Donta Haider MD ([email or web address]) Technologist: ALLYSON Luna Exam Location: [facility] Indications: CHEST PAIN STRESS TEST [facility] for [facility] IMAGE PROTOCOL Rest/Stress 1 Lexiscan Day Radiopharmaceutical Dose (mCi) Administration Site Administered by Rest: Tc-99m 11.0 IV ALLYSON Dunne Sestamibi Stress:Tc-99m 32.6 IV ALLYSON Luna Sestamiaurelio Rest: 19-Jul-2022 60 Discovery 630 Stress: 19-Jul-2022 30 Discovery 630 0.4mg Lexiscan. Supine position only as patient was unable to lay prone. SPECT RESULTS Technical Quality: Excellent Raw Data Analysis: Normal Image Corrections: No attenuation or motion correction applied Summed Stress Score: 1 Summed Rest Score: 0 Summed Difference Score: 1 PERFUSION FINDINGS SPECT images demonstrate homogeneous tracer distribution throughout the myocardium. FUNCTIONAL RESULTS (calculated via Gated SPECT) Stress Image LV EF (%): 73 Stress EDV (mL):77 TID: 0.94 Stress ESV (mL):21 FUNCTIONAL FINDINGS: There is normal left ventricular systolic function. IMPRESSIONS 1. Normal myocardial perfusion imaging with no evidence of ischemia. 2. LV systolic function is normal. Girish Phillip MD (Electronically Signed) Final Date: 20 July 2022 11:48 S
[2022-07-19] MEDS: regadenoson 0.4 Mg/5 ml Syringe IVP (12:17)
[2022-07-19 12:30] VITALS: BP 137/80; PULSE 91
== END 2022-07-19 09:40 | disposition home or self-care (01) ==
LOC: CDL 09:39
PROVIDERS: PCP Nurse Practitioner; Visit Provider Internal Medicine Cardiovascular Disease
DX: R07.9 Chest pain, unspecified (principal)
CPT/HCPCS: 78452; 93017; 96374; A9500; J2785

== ENCOUNTER 2022-07-30 09:19 | Outpatient (CLI) | payer OTHER, MEDICAID, SELFPAY ==
[2022-07-30 09:47] VITALS: PULSE 84; RESP 18; O2SAT 98
[2022-07-30] MEDS: albuterol 2.5 mg/3 mL Neb INHALATION (09:47)
[2022-07-30 09:51] VITALS: PULSE 86
== END 2022-07-30 09:20 | disposition home or self-care (01) ==
PROVIDERS: PCP Nurse Practitioner; Visit Provider Dermatology
DX: R06.02 Shortness of breath (principal)
CPT/HCPCS: 94060; 94618; 94729; J7613

== ENCOUNTER 2022-08-30 12:21 | Outpatient (CLI) | payer MEDICAID, SELFPAY ==
--- NOTE | 2022-08-30 12:30 | USCV_ITS ---
Eros La Age: 56 Gender: M : 1965 Exam Date: 08/30/2022 13:16 Ordering Phys: Jameson Chisholm Technologist: SOCRATES Exam Location: [facility] [place] Indication: Hx of DVT HISTORY: Hx of DVT in right leg PROCEDURES: Venous duplex imaging was performed in only the right lower extremity. The following venous structures were evaluated: common femoral vein, profunda vein, proximal portion of the greater saphenous vein, superficial femoral vein, and the popliteal vein. In addition, the posterior tibial and peroneal trunk were evaluated. Serial compression, augmentation maneuvers, and spectral Doppler flow evaluation were performed. FINDINGS: Pt has chronic DVT starting in prox FV going through the Peroneal Veins. Doesn't appear to be occluding Pt on Eliquis CONCLUSIONS Chronic non-occlusive DVT proximal Femoral vein, popliteal and peroneal vein. No new or progressive thrombus DVT was present 01/01 Guy Bang MD (Electronically Signed) Final Date: 30 August 2022 16:50 S
--- NOTE | 2022-08-30 12:30 | USCV_ITS ---
Eros La Age: 56 Gender: M : 1965 Exam Date: 08/30/2022 13:02 Ordering Phys: Jameson Chisholm Technologist: SOCRATES [place] [facility] [place]ication: Rt sided vision problems Risk Factors: Previous Vascular Surgery: Right Brachial BP: / Left Brachial BP: / Right Left Velocity (cm/s) Spectral Plaque Velocity (cm/s) Spectral Plaque Syst/Diast Broadening Syst/Diast Broadening 99.10/ 29.10 Prox CCA 115.20/ 28.00 92.60/ 27.50 Mid CCA 101.40/ 27.80 82.90/ 27.30 Distal CCA 85.30 / 25.30 63.20/ 29.10 Prox ICA 70.30 / 18.80 76.00/ 35.00 Mid ICA 65.70 / 30.00 66.70/ 28.20 Distal ICA 70.30 / 31.90 92.30 ECA 80.70 0.77 ICA/CCA 0.61 Antegrade Vertebral Antegrade 79.50/ 22.20 cm/s 40.10/ 11.20 cm/s Tri Subclavian Tri 112.9 102.5 0 0 CONCLUSIONS Right ICA stenosis <50%. Mild atheromatous plaque right carotid bulb/ICA. Left ICA stenosis <50%. Mild atheromatous plaque left carotid bulb/ICA. Normal antegrade Doppler flow noted in the right vertebral artery. Normal antegrade Doppler flow noted in the left vertebral artery. Guy Bang MD (Electronically Signed) Final Date: 30 August 2022 17:00 S
== END 2022-08-30 12:22 | disposition home or self-care (01) ==
PROVIDERS: PCP Nurse Practitioner; Visit Provider Nurse Practitioner
DX: H53.9 Unspecified visual disturbance (principal); Z86.711 Personal history of pulmonary embolism
CPT/HCPCS: 93880; 93971

== ENCOUNTER 2022-09-13 13:43 | Outpatient (CLI) | payer MEDICAID, SELFPAY ==
--- NOTE | 2022-09-13 13:48 | CT_ITS ---
WS: [id number] CTA HEAD AND NECK TECHNIQUE: Contrast enhanced CTA of the head and neck with coronal and sagittal reformatted images an d maximum intensity projection (MIP) images. NASCET criteria utilized. CLINICAL INFORMATION: UNSPECIFIED VISUAL DISTURBANCE COMPARISON: None. DLP: [address] scans at [facility] use at least one of these dose optimization techniques: automated e xposure control; mA and/or kV adjustment per patient size (includes targeted exams where dose is matc hed to clinical indication); or iterative reconstruction. FINDINGS: No evidence of intracranial hemorrhage or mass effect. Ventricular system and basal cistern s are patent. Mild small vessel changes. Mild parenchymal volume loss. Mastoid air cells and paranasa l sinuses are well aerated. Normal posterior nasopharynx. RIGHT: RIGHT common carotid artery is patent. No significant RIGHT ICA stenosis. ICA is patent to the skull base. LEFT: LEFT common carotid artery is patent. No significant LEFT ICA stenosis. LEFT ICA is patent to t he skull base. RIGHT dominant vertebral artery. Smaller but patent LEFT vertebral artery. Proximal basilar artery is patent. Normal vascularity to the ORDNANCE ARTIFICER territory bilaterally. Small RIGHT P1 segment with near persis tent RIGHT ORDNANCE ARTIFICER. Both ICAs are patent at the skull base. Normal vascularity to the GOLDIE and MCA territories bilaterally . No evidence of proximal flow limiting stenosis or aneurysm. Normal posterior nasopharynx. Normal parapharyngeal fat. Straightening of the normal cervical lordosis. Mild spondylitic changes. CT/CT angio headneck* 17117/22184 IMPRESSION: 1. Less than 50% ICA stenosis bilaterally. Both ICAs are patent. 2. RIGHT dominant vertebral artery. Both vertebral arteries are patent. 3. Unremarkable intracanal CTA. No evidence of proximal flow limiting stenosis or aneurysm.
[2022-09-13] MEDS: iohexol 350 mg/mL 500 mL Btl (per mL) IV (14:51)
== END 2022-09-13 13:44 | disposition home or self-care (01) ==
LOC: RAD 13:44
PROVIDERS: PCP Nurse Practitioner; Visit Provider Nurse Practitioner
DX: H53.9 Unspecified visual disturbance (principal)
CPT/HCPCS: 70496; 70498; Q9967

== ENCOUNTER 2022-09-18 08:11 | Day surgery (SDC) | payer MEDICAID, SELFPAY ==
[2022-09-17 12:26] VITALS: BMI 31.6
[2022-09-18 08:20] VITALS: BP 123/74; PULSE 65; RESP 16; TEMP 36.2; O2SAT 97
[2022-09-18] MEDS: sodium chloride 0.9% 1,000 ML 30 ML IV (08:32)
[2022-09-18] MEDS: ketorolac 30 mg/mL INJ IVP (08:36)
[2022-09-18] MEDS: acetaminophen 1,000 MG/100 ML PIGGYBACK 400 MG IV (08:38)
--- NOTE | 2022-09-18 09:34 | W.PM.OPSUD ---
Surgery/Procedure H&P Update DATE OF PROCEDURE: September 18, 2022 DATE H&P PERFORMED: 09/03/22 CHANGES TO PREVIOUS DOCUMENTATION: None. No change in HPI visit from 09/03/2022. Patient continues to have right knee pain findings of a right knee medial meniscus tear. He understands risk benefits complication alternatives of surgery elects proceed with surgical intervention all questions answered at this time. Will proceed with right knee diagnostic and surgical arthroscopy with partial medial meniscectomy. PREOP DIAGNOSIS: Right knee meniscus tear PRIMARY INDICATION FOR PROCEDURE: right knee medial meniscus tear PLANNED PROCEDURE: Operation Date: 09/18/22 09:45 Proposed Procedures p right knee diagnostic and surgical arthroscopy with partial medial meniscectomy. 30738,S83.249A, M25.569(Right) - Prasanna Dorado DO
--- NOTE | 2022-09-18 09:36 | ANES.PREANE2 ---
Pre-Anesthetic Assessment Height/Weight: Height 1.85 m Weight 108.862 kg Temp Pulse Resp BP Pulse Ox O2 Del Method 97.2 F L 65 16 123/74 97 Room Air 09/18/22 08:20 09/18/22 08:20 09/18/22 08:20 09/18/22 08:20 09/18/22 08:20 09/18/22 08:20 Preop Diagnosis: Right knee meniscus tear Operation Date: 09/18/22 09:45 Proposed Procedures p right knee diagnostic and surgical arthroscopy with partial medial meniscectomy. 20088,S83.249A, M25.569(Right) - Prasanna Estrada, DO Familial anesthetic complications: None Was Beta Silas taken within 24 hours: N/A Was Clonidine taken within 24 hours: N/A Last intake: Intake Last Liquid Date 09/17/22 Last Liquid Time 23:00 Last Solid Date 09/17/22 Last Solid Time 23:00 Social Tobacco (chews) and No alcohol Exam alert, oriented x 3, clear to auscultation bilaterally and regular rate & rhythm Airway Mallampati: Class II Dentition: full Pulmonary Asthma long covid, hx pneumonia w/ lung surgery CV/HEM Deep Vein Thrombosis PE Metabolic Hyperlipidemia Anesthetic Plan ASA status: 3 Anesthesia: General Risk of > 500 ml blood loss (7ml/kg in children): No Medications/Allergies Home Medications Medication Instructions Recorded Confirmed Last Taken Type pantoprazole 40 mg tablet,delayed 40 mg PO BID 10/19/20 09/18/22 09/18/22 History release potassium chloride 10 mEq 10 meq PO DAILY 09/26/21 09/17/22 09/17/22 History capsule,extended release atorvastatin 20 mg tablet 20 mg PO DAILY 12/14/21 09/18/22 09/17/22 History fluoxetine 10 mg capsule (Prozac) 10 mg PO DAILY 12/14/21 09/18/22 09/17/22 History furosemide 40 mg tablet (Lasix) 40 mg PO DAILY 12/14/21 09/18/22 09/17/22 History apixaban 5 mg tablet 5 mg PO BID #60 tabs 01/02/22 09/17/22 09/08/22 Rx albuterol sulfate 90 mcg/actuation 2 puff inhalation Q6H PRN 06/13/22 09/18/22 07/10/22 Rx aerosol inhaler shortness of breath or wheezing #8.5 grams glycopyrrolate 9 mcg-formoterol 2 puff inhalation BID #10.7 grams 06/25/22 09/18/22 07/09/22 Rx 4.8 mcg HFA aerosol inhaler (Bevespi Aerosphere) hydrocodone 5 mg-acetaminophen 325 1 tab PO Q6H PRN pain 7 days #28 09/18/22 Unknown Rx mg tablet tabs Allergies Allergy/AdvReac Type Severity Reaction Status Date / Time morphine Allergy Unknown other Verified 09/03/22 11:55 Current Medications Generic Name Dose Route Start Last Admin Trade Name Freq PRN Reason Stop Dose Admin Sodium Chloride 1,000 mls @ 30 mls/hr 09/18/22 08:15 09/18/22 08:32 Sodium Chloride 0.9% IV 09/19/22 08:14 30 mls/hr .Q24H ANUP Administration PFSH Anesthesia Medical History Pneumonia Pyopneumothorax Surgical History S/P appendectomy Social History Smoking and tobacco status: former smoker Quit status (tobacco): has quit using tobacco Year quit tobacco: 2007 Former quit date comment: 2 ppd X 34 years, started at age 7 Alcohol intake: current Alcohol intake frequency: holidays/special occasions only Substance/Drug Use: never Adopted: No Household members: spouse Housing: House Data Anesthesia Cardiac Studies: Echocardiogram 06/14/22 Sestamibi Stress Test (Cardiology) 07/19/22
[2022-09-18] MEDS: ceFAZolin 2,000 MG in sodium chloride 0.9% (plus) 50 ML 100 MG IV (09:50)
[2022-09-18] MEDS: lidocaine-epi 2% 20 mL INJ 40 ML (10:26)
[2022-09-18] MEDS: lidocaine-epi 2% 20 mL INJ INJECTION (10:26)
--- NOTE | 2022-09-18 10:43 | P.OP_ITS ---
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 Patient has failed conservative treatment who has been worked up for right??knee?pain in the outpatient setting. MRI findings consistent with tear of the medial meniscus. talked in the office about treatment?options patient would like to proceed with a right?knee?diagnostic and surgical arthroscopy with partial medial meniscectomy. Patient understand the ins and outs of the procedure the risk benefits complication alternatives to treatment?options.? Understanding risk of surgery they agree to proceed with surgical intervention.? Patient understand this may not provide patient with complete symptomatic relief of? pain as patient does have some underlying arthritis.? Understanding this and patient agree to proceed with surgical intervention all questions answered. Procedure: Patient seen and evaluated in the preoperative holding area.? Consent was reviewed and signed with patient.? Correct extremity was then marked.? Patient seen evaluated Anesthesia Department once cleared for surgery patient was taken back to the?operative suite.? Patient was transported onto the OR table in supine position.? All bony prominences well-padded patient was appropriate secured to the bed.? Once appropriately anesthetized a nonsterile tourniquet was applied to the right thigh.? The right lower extremity was then prepped and draped in standard orthopedic fashion.? Final timeout performed.? Patient received appropriate preoperative antibiotics. Patient received local anesthetic of lidocaine with epinephrine into the joint as well as around the portal sites.? No tourniquet was inflated A standard 2 portal vertical incision diagnostic and surgical arthroscopy of the right?knee?was performed in standard fashion.? Small stab incision made in the inferolateral portal introduced trocar and arthroscope into the suprapatellar pouch.? Suprapatellar pouch was subsequently visualized and found to have s ignificant synovitis but no loose bodies.? Patient had noticeable significant inflamed infrapatellar fat pad and thickening hypertrophic within the patellofemoral compartment.? ?The medial gutter was free of loose bodies I then introduced the arthroscope into the medial compartment.? Within the medial compartment I then established my inferior medial working portal utilizing spinal needle outside in technique.? Once established I then visualized our articular cartilage of the medial compartment with a valgus stress.? 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 Next I inspected the meniscus.? With an arthroscopic probe was utilized to visual? all aspects of the meniscus.? Meniscal root was found to be intact.? Meniscus was found to be torn at the body to posterior horn junction.? I then subsequently introduced a basket forceps as well as arthroscopic shaver to perform a partial medial meniscectomy to stable meniscal tissue and then utilized a thermal wand to anneal the edges.? Next, I then performed a synovectomy of the medial compartment.?? This completed medial compartment work. Next a introduced the arthroscope to the intercondylar notch.? PCL and ACL were intact. patient had significant thickening of the infrapatellar fat pad spanning into the medial and lateral compartments.? I then performed an extensive synovectomy with the arthroscopic shaver of the patellofemoral medial and lateral compartments as well as the intercondylar notch. Advance the scope into the retrocruciate space and no loose bodies were found. Next I introduced the arthroscope into the lateral compartment the lateral compartment was found to have grade 2 chondromalacia.? Lateral meniscus was found to be intact.? The root was intact.? Given the grade II chondromalacia there is no unstable cartilage pieces to perform chondroplasty.? This completed my work of the lateral compartment and then performed a synovectomy of the lateral compartment.? Next of the arthroscope was placed into the lateral gutter and this was free of loose bodies.? Finally I reintroduced the arthroscope into the patellofemoral compartment.? The patellofemoral was found to have grade 2 chondromalacia of the patellofemoral compartment.? At this point I utilized arthroscopic shaver as well as thermal wand to perform extensive synovectomy of the patellofemoral compartment. This completed my work of the patellofemoral space.? I then switch my portal sites to the medial working portal.? Completed the rest of my synovectomy and the rest of my examination arthroscopy was normal. All fluid was suctioned from the joint.? ?All instruments were withdrawn.? Portal sites were closed with interrupted nylon suture.? portal sites were then covered with with Xeroform 4 x 4's ABD Curlex and Mack wrap.? Patient was then subsequently awakened from anesthesia and taken to PACU in stable condition. Disposition: Patient taken to PACU in stable condition recovering well.? Will receive appropriate discharge structure as well as pain medication postoperatively as well as? DVT prophylaxis.we will have patient follow-up with us in the office in 2 weeks.? We will weightbearing as tolerated to the right lower extremity.? Patient understands and agrees with current plan.? All questions
--- NOTE | 2022-09-18 10:43 | PM.OP2 ---
Brief Operative Note Date of procedure: 09/18/22 Pre-op diagnosis: RIght knee medial meniscus tear Post-op diagnosis: same Procedure Done: Right knee diagnostic and surgical arthroscopy with partial medial meniscectomy Right knee diagnostic and surgical arthroscopy with extensive synovectomy of the medial, lateral and patellofemoral compartments Surgeon: Prasanna Dorado Estimated blood loss (mL): 5 Complications: None Post-op Plan: Patient taken to PACU in stable condition recovering well receive appropriate discharge instruction as well as pain medication postoperatively. Patient will resume home Eliquis. Patient to follow-up in orthopedic office in 2 weeks. Patient understands agrees with current plan. Questions answered. Condition: stable Disposition: same day Coding Level of Care Code Acute Code for Tamra Bazan
--- NOTE | 2022-09-18 10:43 | PM.PACU ---
PACU note Narrative: Patient taken to PACU in stable condition recovering well. Pain controlled. Patient dressings on in place to the right lower extremity is clean dry and intact. Able to wiggle toes plantarflex and dorsiflex ankle sensations intact light touch distally. Distal pulses palpable. Exam: awake Disposition: discharged
[2022-09-18 10:49] VITALS: BP 140/80; PULSE 70; RESP 14; TEMP 36.1; O2SAT 99
[2022-09-18 10:55] VITALS: BP 138/82; PULSE 73; RESP 17; O2SAT 96
[2022-09-18 11:01] VITALS: BP 107/62; PULSE 69; RESP 16; TEMP 36.1; O2SAT 96
[2022-09-18 11:16] VITALS: BP 125/50; PULSE 55; RESP 18; O2SAT 95
--- NOTE | 2022-09-18 11:30 | ANE.PACU2 ---
Inpatient post-anesthesia follow up: Airway intact: Yes Vital signs: Temperature 97.0 F Pulse Rate 55 Respiratory Rate 18 Blood Pressure 125/50 Pulse Oximetry 95 Oxygen Delivery Me thod Room Air Oxygen Flow Rate 6 Fraction of Inspir ed Oxygen Hydration adequate: Yes Nausea and vomiting: No Pain level: 1 Mental status: Baseline
== END 2022-09-18 11:30 | disposition home or self-care (01) ==
PROVIDERS: PCP Nurse Practitioner; Visit Provider Student in an Organized Health Care Education/Training Program
PROC: (CPT 29870; principal; 2022-09-18 09:35)
DX: S83.241A Other tear of medial meniscus, current injury, right knee, initial encounter (principal); M22.41 Chondromalacia patellae, right knee; J45.909 Unspecified asthma, uncomplicated; E78.5 Hyperlipidemia, unspecified; Z79.899 Other long term (current) drug therapy; Z86.16 Personal history of COVID-19; Z86.711 Personal history of pulmonary embolism; Z86.718 Personal history of other venous thrombosis and embolism; Z87.891 Personal history of nicotine dependence; Z88.5 Allergy status to narcotic agent; X58.XXXA Exposure to other specified factors, initial encounter
CPT/HCPCS: 29882; J0131; J0690; J1885; J2405; J2704; J3010; J7030

== ENCOUNTER → 2022-12-26 10:18 | Outpatient (BNVA) | payer MEDICAID, SELFPAY | PROVIDERS: PCP Nurse Practitioner; Visit Provider Physician Assistant | DX: Z98.890 Other specified postprocedural states (principal) | CPT/HCPCS: 99213 ==

== ENCOUNTER 2022-12-31 08:02 | Outpatient (CLI) | payer MEDICAID, SELFPAY ==
--- NOTE | 2022-12-31 08:09 | MR_ITS ---
WS: [id number] MRI HEAD WITHOUT CONTRAST TECHNIQUE: Sagittal T1, T2 axial, T2 axial FLAIR, axial and coronal T1 images, axial susceptibility w eighted imaging, axial diffusion weighted images, and coronal T2 images were obtained. Gadolinium not administered due to inability to obtain IV access CLINICAL INFORMATION: VISUAL DISTURBANCE COMPARISON: None. FINDINGS: No evidence of restricted diffusion to suggest acute ischemia. Ventricular system and basal cisterns are patent. Mild small vessel changes. Moderate parenchymal volume loss. Normal vascular flow voids a t the skull base. No extra-axial fluid collections. No mass or mass effect. Paranasal sinuses are wel l aerated. Normal posterior nasopharynx and parapharyngeal fat. Tiny chronic lacunar infarcts in the cerebellum. Mastoid air cells are well aerated. No hemosiderin on susceptibility-weighted images. Normal optic c hiasm and pituitary infundibulum. Temporal lobes and hippocampal formations are normal in appearance. IMPRESSION: 1. No evidence of restricted diffusion to suggest acute ischemia. 2. Mild small vessel changes with moderate parenchymal volume loss. 3. Tiny chronic lacunar infarcts in the cerebellum bilaterally. 4. No hemosiderin on susceptibility-weighted images. 5. No other suspicious findings.
== END 2022-12-31 08:03 | disposition home or self-care (01) ==
PROVIDERS: PCP Nurse Practitioner; Visit Provider Nurse Practitioner
DX: H53.9 Unspecified visual disturbance (principal); Z86.73 Personal history of transient ischemic attack (TIA), and cerebral infarction without residual deficits
CPT/HCPCS: 70551

== ENCOUNTER 2023-01-10 14:00 | Outpatient (CLI) | payer MEDICAID, SELFPAY ==
--- NOTE | 2023-01-10 14:30 | CT_ITS ---
WS: [id number] CT chest wo con [id number] HISTORY: 12 month f/u TECHNIQUE: Axial imaging performed through the thorax. Coronal and sagittal reformats are submitted. All CT scans at [facility] use at least one of these dose optimization techniques: automated exposure control; mA and/or kV adjustment per patient size (includes targeted exams where dose is mat ched to clinical indication); or iterative reconstruction. CONTRAST: None DLP: 563.71 mGy.cm COMPARISON: 01/09/2022, 07/04/2021 Lungs and central airway: Normally aerated lungs. Bilateral peripheral areas of groundglass attenuati on similar to prior studies. No progression of the opacifications. Slightly greater involvement at th e lung bases. 6 mm nodule at the RIGHT lung base is decreased in size since the prior studies. No pro gression of nodularity. Majority of the findings of are probably chronic and postinflammatory. No enl arging mass. No pneumonia. Pleura: Normal. No pleural effusion. Heart and pericardium: Normal size heart with no pericardial effusion. Mediastinum and zuly: No mediastinum or hilar adenopathy. Vessels: Normal size aortic and pulmonary artery. No coronary artery calcifications. Chest wall and lower neck: No soft tissue masses. LEFT lateral chest wall stranding is similar to the prior studies. These are postsurgical changes with no increasing mass or abscess identified. Upper abdomen: Small hiatal hernia. No adrenal mass. Osseous structures: Increase in thoracic kyphosis. IMPRESSION: 1. Mild continued improvement in the airspace disease and scattered groundglass opacifications since 12/26/2020. 2. Previously described nodule at the RIGHT lung base has decreased in size and appears less masslike today. 3. No adenopathy. 4. Small hiatal hernia.
== END 2023-01-10 14:01 | disposition home or self-care (01) ==
LOC: RAD 14:00
PROVIDERS: PCP Nurse Practitioner; Visit Provider Internal Medicine Pulmonary Disease
DX: R91.1 Solitary pulmonary nodule (principal); K44.9 Diaphragmatic hernia without obstruction or gangrene; M40.294 Other kyphosis, thoracic region
CPT/HCPCS: 71250

== ENCOUNTER → 2023-01-13 11:21 | Outpatient (BNVA) | payer MEDICAID, SELFPAY | PROVIDERS: PCP Nurse Practitioner; Visit Provider Internal Medicine Pulmonary Disease | DX: R06.02 Shortness of breath (principal); R91.1 Solitary pulmonary nodule; Z87.891 Personal history of nicotine dependence; K44.9 Diaphragmatic hernia without obstruction or gangrene; U09.9 Post COVID-19 condition, unspecified | CPT/HCPCS: 36415; 82785; 85025; 86003; 99214 ==

== ENCOUNTER → 2023-04-08 10:35 | Outpatient (BNVA) | payer MEDICARE, SELFPAY | PROVIDERS: PCP Nurse Practitioner; Referring Provider Nurse Practitioner; Visit Provider Specialist | DX: G44.1 Vascular headache, not elsewhere classified (principal); G43.711 Chronic migraine without aura, intractable, with status migrainosus; I10 Essential (primary) hypertension; H93.13 Tinnitus, bilateral | CPT/HCPCS: 36415; 82607; 84443; 85651; 86160; 86162; 86235; 86255; 86376; 99204 ==

== ENCOUNTER 2023-05-21 14:00 | Outpatient (CLI) | payer MEDICARE, SELFPAY | END 2023-05-21 14:01 | disposition home or self-care (01) | LOC: SLEEP 05-26 08:29 | PROVIDERS: PCP Nurse Practitioner; Visit Provider Nurse Practitioner | DX: G47.33 Obstructive sleep apnea (adult) (pediatric) (principal) | CPT/HCPCS: G0399 ==

== ENCOUNTER → 2023-07-08 11:33 | Outpatient (BNVA) | payer OTHER, MEDICARE, SELFPAY | PROVIDERS: PCP Nurse Practitioner; Visit Provider Specialist | DX: G43.711 Chronic migraine without aura, intractable, with status migrainosus (principal); I10 Essential (primary) hypertension | CPT/HCPCS: 99214 ==

== ENCOUNTER → 2023-07-29 13:25 | Outpatient (CLI) | payer OTHER, MEDICARE, SELFPAY ==
--- NOTE | 2023-07-29 13:45 | MR_ITS ---
WS: [id number] MRA HEAD TECHNIQUE: Axial 3-D TOF images obtained with axial images and axial, sagittal, and coronal 2-D refor matted images. CLINICAL INFORMATION: R51.9 - Headache, unspecified COMPARISON: MRI 12/31/2022 FINDINGS: Dominant distal RIGHT vertebral artery. Smaller but patent distal LEFT vertebral artery. Basilar danii ry is patent. Patent RIGHT posterior communicating artery. Normal vascularity to the PIPE COVERING MOLDER territory bi laterally. Both ICAs are patent at the skull base. Normal vascularity to the GOLDIE territory. Somewhat small A1 se gments bilaterally. Normal vascularity to the MCA territories bilaterally. MR/MR angio head wo con [id number] IMPRESSION: 1. Normal intracranial MRA. 2. No evidence of proximal flow-limiting stenosis or aneurysm.
== END | disposition home or self-care (01) ==
LOC: RAD 13:24
PROVIDERS: PCP Nurse Practitioner; Visit Provider Specialist
DX: R51.9 Headache, unspecified (principal)
CPT/HCPCS: 70544

== ENCOUNTER → 2023-09-10 12:14 | Outpatient (BNVA) | payer OTHER, SELFPAY | PROVIDERS: PCP Nurse Practitioner; Visit Provider Specialist | DX: G43.711 Chronic migraine without aura, intractable, with status migrainosus (principal); I10 Essential (primary) hypertension; G44.52 New daily persistent headache (NDPH); U09.9 Post COVID-19 condition, unspecified | CPT/HCPCS: 99214 ==

== ENCOUNTER → 2023-10-16 13:09 | Outpatient (BNVA) | payer OTHER, SELFPAY | PROVIDERS: PCP Nurse Practitioner; Visit Provider Internal Medicine Critical Care Medicine | DX: R06.09 Other forms of dyspnea (principal); J43.2 Centrilobular emphysema; J98.4 Other disorders of lung; U09.9 Post COVID-19 condition, unspecified; G47.33 Obstructive sleep apnea (adult) (pediatric); E66.09 Other obesity due to excess calories; Z68.31 Body mass index [BMI] 31.0-31.9, adult; Z71.3 Dietary counseling and surveillance; Z71.82 Exercise counseling; Z71.89 Other specified counseling | CPT/HCPCS: 99214 ==

== ENCOUNTER 2023-12-31 16:21 | Outpatient (CLI) | payer OTHER, SELFPAY ==
--- NOTE | 2023-12-31 16:39 | USCV_ITS ---
EmilianoEros johnson Age: 58 Gender: M : 1965 Exam Date: 12/31/2023 16:49 Ordering Phys: Jameson Chisholm Technologist: DEANDRE Exam Location: [facility] [place]_ Indication: leg pain HISTORY: History of deep venous thrombosis. PROCEDURES: Venous duplex imaging was performed in only the right lower extremity. The following venous structures were evaluated: common femoral vein, profunda vein, proximal portion of the greater saphenous vein, superficial femoral vein, and the popliteal vein. In addition, the posterior tibial and peroneal trunk were evaluated. FINDINGS: Non occlusive thrombus found in femoral vein, possible chronic dvt, small vein and limited flow through femoral vein CONCLUSIONS Chronic appearing DVT RIGHT femoral vein with atretic femoral vein similiar in appearance to 2022 Remainder RLE patent. No new thrombus Guy Bang MD (Electronically Signed) Final Date: 01 January 2024 09:20 S
== END 2023-12-31 16:22 | disposition home or self-care (01) ==
LOC: RAD 16:21
PROVIDERS: PCP Nurse Practitioner; Visit Provider Nurse Practitioner
DX: I82.501 Chronic embolism and thrombosis of unspecified deep veins of right lower extremity (principal)
CPT/HCPCS: 93971